=== PATIENT | female | born 1970 | race Caucasian/White ===

== ENCOUNTER 2016-05-30 08:20 | Outpatient (CLI) | payer OTHER | END 2016-05-30 08:21 | disposition home or self-care (01) | DX: Z00.00 Encounter for general adult medical examination without abnormal findings (principal); G40.209 Localization-related (focal) (partial) symptomatic epilepsy and epileptic syndromes with complex partial seizures, not intractable, without status epilepticus; Z79.899 Other long term (current) drug therapy ==

== ENCOUNTER 2016-06-26 12:38 | Outpatient (CLI) | payer OTHER | END 2016-06-26 12:39 | disposition home or self-care (01) | DX: N63 Unspecified lump in breast (principal) ==

== ENCOUNTER 2016-11-02 11:16 | Outpatient (CLI) | payer OTHER ==
[2016-11-02 11:32] LABS: BASOPHILS % (AUTO) 0.6 %; EOSINOPHILS # (AUTO) 0.1 10^3/uL (0.0-0.7); EOSINOPHILS % (AUTO) 2.5 %; HGB - HEMOGLOBIN 13.7 g/dL (12.0-16.0); LYMPHOCYTES # (AUTO) 1.5 10^3/uL (1.5-3.5); LYMPHOCYTES % (AUTO) 30.9 %; MEAN CORPUSCULAR HGB CONC 33.3 g/dL (32.0-36.0); MONOCYTES # (AUTO) 0.4 10^3/uL (0.0-1.0); MONOCYTES % (AUTO) 9.1 %; NEUTROPHILS # (AUTO) 2.8 10^3/uL (1.5-6.6); NEUTROPHILS % (AUTO) 56.9 %; RED BLOOD COUNT 4.27 10^6/uL (4.20-5.40); RED CELL DISTRIBUTION WIDTH 12.8 % (12.0-15.0); UNCORRECTED WHITE BLOOD COUNT 4.9 x10^3/uL; WHITE BLOOD COUNT 4.9 x10^3/uL (4.8-10.8)
[2016-11-02 11:44] LABS: ALBUMIN/GLOBULIN RATIO 1.3 (1.0-2.2); BILIRUBIN,TOTAL 0.4 mg/dL (0.2-1.0); CALCIUM 9.5 mg/dL (8.5-10.3); CREATININE 0.7 mg/dL (0.4-1.0); TOTAL PROTEIN 7.5 g/dL (6.7-8.2)
== END 2016-11-02 11:17 | disposition home or self-care (01) ==
LOC: LAB 11:16
PROVIDERS: ATTEND Nurse Practitioner Primary Care
DX: K51.90 Ulcerative colitis, unspecified, without complications (principal)
CPT/HCPCS: 36415; 80053; 85025

== ENCOUNTER 2017-01-08 12:45 | Outpatient (CLI) | payer OTHER | END 2017-01-08 12:46 | disposition home or self-care (01) | LOC: LAB.R 12:45 | PROVIDERS: ATTEND Nurse Practitioner Primary Care | DX: N39.0 Urinary tract infection, site not specified (principal) | CPT/HCPCS: 87077; 87086 ==

== ENCOUNTER 2017-02-20 08:00 | Outpatient (CLI) | payer OTHER | END 2017-02-20 08:01 | disposition home or self-care (01) | LOC: LAB.R 08:00 | PROVIDERS: ATTEND Nurse Practitioner Primary Care | DX: N39.0 Urinary tract infection, site not specified (principal) | CPT/HCPCS: 87086 ==

== ENCOUNTER 2017-09-11 12:59 | Outpatient (CLI) | payer BC ==
--- NOTE | 2017-09-12 10:18 | Mammography Report ---
Procedure Date: 09/11/2017 Accession Number: [id number] / [id number] Procedure: THALIA - Screening Mammo Dig Bilat CPT Code: FULL RESULT: EXAM: Screening Mammo Dig Bilat DATE: 09/11/2017 1:16 PM CLINICAL HISTORY: 47-year-old with history of late childbearing for screening TECHNIQUE: Bilateral CC and MLO views were obtained. COMPARISON: 06/26/2016, 11/08/2014, 10/03/2012, 03/20/2011 FINDINGS: The breasts demonstrate heterogeneously dense fibroglandular parenchyma bilaterally. Coarse and punctate, typically benign calcifications are present. No suspicious masses, clustered microcalcifications, or regions of architectural distortion are identified. IMPRESSION: Benign findings RECOMMENDATION: Routine annual screening unless otherwise clinically indicated. BIRADS CATEGORY 2: Benign findings STANDARD QUALIFYING STATEMENTS: 1. This examination was reviewed with the aid of Computer-Aided Detection (CAD). 2. A negative or benign imaging report should not delay biopsy if clinically suspicious findings are present. Consider surgical consultation if warrented. More than 5% of cancers are not identified by imaging. 3. Dense breasts may obscure an underlying neoplasm.
== END 2017-09-11 13:00 | disposition home or self-care (01) ==
LOC: DI 12:59
PROVIDERS: ATTEND Physician Assistant Medical
DX: Z12.31 Encounter for screening mammogram for malignant neoplasm of breast (principal)
CPT/HCPCS: 77067

== ENCOUNTER 2018-04-16 08:00 | Outpatient (CLI) | payer BC ==
[2018-04-16 16:13] LABS: BASOPHILS % (AUTO) 0.3 %; EOSINOPHILS # (AUTO) 0.1 10^3/uL (0.0-0.7); EOSINOPHILS % (AUTO) 2.8 %; HGB - HEMOGLOBIN 12.1 g/dL (12.0-16.0); LYMPHOCYTES # (AUTO) 1.4 10^3/uL (1.5-3.5); LYMPHOCYTES % (AUTO) 39.6 %; MEAN CORPUSCULAR HGB CONC 32.7 g/dL (32.0-36.0); MEAN CORPUSCULAR VOLUME 97.7 fL (81.0-99.0); MEAN PLATELET VOLUME 9.9 fL (7.9-10.8); MONOCYTES # (AUTO) 0.4 10^3/uL (0.0-1.0); MONOCYTES % (AUTO) 9.7 %; NEUTROPHILS # (AUTO) 1.7 10^3/uL (1.5-6.6); NEUTROPHILS % (AUTO) 47.6 %; PLT - PLATELET COUNT 206 10^3/uL (130-450); RED BLOOD COUNT 3.79 10^6/uL (4.20-5.40); RED CELL DISTRIBUTION WIDTH 13.6 % (12.0-15.0); WHITE BLOOD COUNT 3.7 x10^3/uL (4.8-10.8)
[2018-04-16 16:18] LABS: ALBUMIN 3.8 g/dL (3.2-5.5); ALBUMIN/GLOBULIN RATIO 1.2 (1.0-2.2); BILIRUBIN,TOTAL 0.2 mg/dL (0.2-1.0); CALCIUM 8.9 mg/dL (8.5-10.3); CREATININE 0.7 mg/dL (0.4-1.0); TOTAL PROTEIN 7.1 g/dL (6.7-8.2)
== END 2018-04-16 23:59 | disposition home or self-care (01) ==
LOC: LAB.R 08:00
PROVIDERS: ATTEND Nurse Practitioner Primary Care
DX: D50.0 Iron deficiency anemia secondary to blood loss (chronic) (principal); Z79.899 Other long term (current) drug therapy; R73.9 Hyperglycemia, unspecified; G40.209 Localization-related (focal) (partial) symptomatic epilepsy and epileptic syndromes with complex partial seizures, not intractable, without status epilepticus
CPT/HCPCS: 80053; 80184; 80188; 81599; 85025

== ENCOUNTER 2019-04-27 11:10 | Outpatient (CLI) | payer OTHER ==
--- NOTE | 2019-04-28 09:53 | XRAY Report ---
Reason: ANKLE JOINT PAIN,RIGHT Procedure Date: 04/27/2019 Accession Number: [id number] / [id number] Procedure: XR - Ankle 3 View RT CPT Code: Final Report FULL RESULT: EXAM: RIGHT ANKLE RADIOGRAPHY 3 VIEWS EXAM DATE: 04/27/2019. CLINICAL HISTORY: Right ankle joint pain. COMPARISON: None. TECHNIQUE: AP, oblique and lateral views. FINDINGS: Bones: No fracture or other acute abnormality. 7 mm enthesophyte at the insertion of the Achilles tendon on the posterior calcaneus. Joints: Normal. No effusion. No subluxations. The ankle mortise is normally aligned. Soft Tissues: Normal. No soft tissue swelling. IMPRESSION: Normal examination of the right ankle. Mild enthesopathy at the insertion of the Achilles tendon on the calcaneus. RADIA
== END 2019-04-27 11:11 | disposition home or self-care (01) ==
LOC: DI 11:10
PROVIDERS: ATTEND Nurse Practitioner
DX: M25.571 Pain in right ankle and joints of right foot (principal)

== ENCOUNTER 2019-05-22 15:56 | Outpatient (CLI) | payer BC, OTHER ==
--- NOTE | 2019-05-25 08:59 | DEXA Report ---
Reason: LONG HISTORY OF HIGH RISK MEDS Procedure Date: 05/22/2019 Accession Number: [id number] / [id number] Procedure: DEX - Dexa Spine and/or Hip CPT Code: Final Report FULL RESULT: EXAM: Dexa Spine and/or Hip DATE: 05/22/2019 5:19 PM CLINICAL HISTORY: LONG HISTORY OF HIGH RISK MEDS TECHNIQUE: Dual energy x-ray absorptiometry (DXA) was performed on a [employer] System. Regions measured are the AP Spine, femoral neck, and if needed forearm. COMPARISON: None. In accordance with the International Society for Clinical Densitometry (ISCD) guidelines, data from previous exams may be reanalyzed using current recommendations and techniques. This is done to allow a more accurate basis for comparison with the current study. FINDINGS: The data for the lumbar spine is as follows: BMD (g/cm/cm) T-SCORE Z-SCORE REGION L1 1.131 0.0 0.2 L2 1.232 0.3 0.5 L3 1.343 1.2 1.4 L4 1.035 -1.4 -1.2 TOTAL 0.6 0.8 NOTE: All evaluable vertebrae are used for classification The data for the hip is as follows: BMD (g/cm/cm) T-SCORE Z-SCORE REGION Neck 0.877 -1.2 -0.5 TOTAL 0.979 -0.2 0.1 NOTE: The femoral neck or total proximal femur, whichever is lowest, is used for classification. IMPRESSION: THE WHO CLASSIFICATION BASED ON THE INTERNATIONAL REFERENCE STANDARD IS OSTEOPENIA. THE FRACTURE RISK IS INCREASED. RECOMMENDATION: Patients with diagnosis of osteoporosis or osteopenia should have regular bone mineral density assessment. For those eligible for Medicare, routine testing is allowed once every 2 years. Testing frequency can be increased for patients who have rapidly progressing disease or for those who are receiving medical therapy to restore bone mass. COMMENT: World Health Organization (WHO) definitions for osteoporosis and osteopenia: NORMAL BMD: T-score at -1.0 or higher, fracture risk is low OSTEOPENIA BMD: T-score between -1.0 and -2.5, fracture risk is increased. OSTEOPOROSIS BMD: T-score at -2.5 or lower, fracture risk is high. National Osteoporosis Foundation recommends: 1. Obtain adequate dietary calcium (at least 1200 mg per day) and vitamin D (400-800 international units per day). 2. Participate, as appropriate, in regular weightbearing and muscle-strengthening exercise. 3. Avoid tobacco use and reduce alcohol and caffeine intake. 4. For more detailed information see the website at www.NOF.org.
== END 2019-05-22 15:57 | disposition home or self-care (01) ==
LOC: DI 15:56
PROVIDERS: ATTEND Specialist
DX: M85.88 Other specified disorders of bone density and structure, other site (principal); Z79.899 Other long term (current) drug therapy
CPT/HCPCS: 77080

== ENCOUNTER 2021-09-04 09:47 | Outpatient (CLI) | payer BC, OTHER ==
--- NOTE | 2021-09-04 10:38 | DEXA Report ---
PROCEDURE: Dexa Spine and/or Hip INDICATIONS: Osteopenia TECHNIQUE: Dual energy x-ray absorptiometry (DXA) was performed on a [employer] System. Regions measur ed are the AP Spine, femoral neck, and if needed forearm. COMPARISON: 05/22/2019 FINDINGS: Lumbar Spine: Bone Mineral Density 1.15 g/cm/cm,T score -0.2, normal Left Hip: Bone Mineral Density 1.016 g/cm/cm,T score 0.1, normal Left Femoral Neck: Bone Mineral Density 0.852 g/cm/cm, T score -1.3, osteopenia IMPRESSION: Osteopenia on the basis of left femoral neck density. Bone mineral density has increased by a statist ically significant 3.8% in the left hip when compared with 05/22/2019 examination. Patients with diagnosis of osteoporosis or osteopenia should have regular bone mineral density assess ment. For those eligible for Medicare, routine testing is allowed once every 2 years. Testing frequ ency can be increased for patients who have rapidly progressing disease or for those who are receivin g medical therapy to restore bone mass. Reviewed by: Lauri Shah MD on 09/04/2021 10:37 AM PDT Approved by: Lauri Shah MD on 09/04/2021 10:37 AM PDT Station ID: [id number]
== END 2021-09-04 09:48 | disposition home or self-care (01) ==
LOC: DI 09:47
PROVIDERS: ATTEND Specialist
DX: M85.88 Other specified disorders of bone density and structure, other site (principal)

== ENCOUNTER 2021-11-28 12:26 | Outpatient (CLI) | payer OTHER ==
--- NOTE | 2021-11-29 12:50 | Ultrasound Report ---
LIMITED ULTRASOUND OF RIGHT BREAST: 11/28/2021 CLINICAL: Patient returns today to evaluate a focal asymmetry in the right breast. Comparison is made to exams dated: 11/28/2021 mammogram, 11/06/2021 mammogram, 06/26/2016 mammogram, mammogram, and 11/08/2014 mammogram - [facility]. Real-time ultrasound of the right breast 11-12 o'clock region was performed. Rosales scale images of th e real-time examination were reviewed. Dense fibroglandular tissue but no mass is identifed in the area of the mammographic architectural di stortion in the right breast 11-12 o'clock position anterior depth. IMPRESSION: PROBABLY BENIGN No sonographic abnormality is seen corresponding to the mammographic architectural distortion in the right breast 11-12 o'clock position. Follow up right breast mammogram in 6 months is recommended to percy lopez. This exam was interpreted at Station ID: [id number]. Electronically Signed By: Jagjit Arechiga M.D. ar/:11/28/2021 19:57:46 Ultrasound BI-RADS: 3 Probably benign BI-RADS CATEGORY: (3) - 3 Mammogram [id number] 6 month follow-up LATERALITY: (R)
--- NOTE | 2021-11-29 12:50 | Mammography Report ---
UNILATERAL RIGHT DIGITAL DIAGNOSTIC MAMMOGRAM 3D/2D: 11/28/2021 CLINICAL: Patient returns today to evaluate an architectural distortion in the right breast. Comparison is made to exams dated: 11/06/2021 mammogram, 09/11/2017 mammogram, 06/26/2016 mammogram, an d 11/08/2014 mammogram - [facility]. The right breast is heterogeneously dense, which may obscure small masses (category c / 51-75% gland ular tissue). There is irregular architectural distortion in the right breast at 12 o'clock anterior depth. Findin g is seen only on tomography. This is seen in additional views. This is more prominent. This abno rmality may have been present on multiple prior mammograms, but it is likely more prominent due to to mosynthesis images. No other significant masses or calcifications are seen in the breast. IMPRESSION: INCOMPLETE: NEEDS ADDITIONAL IMAGING EVALUATION The irregular architectural distortion in the right breast is indeterminate. An ultrasound is recomm ended. Based on the Tyrer Cuzick model (a risk assessment model) the patients lifetime risk is 13.8% and he r 10 year risk is 3.4%. According to the ACR, ACS, and NCCN guidelines, an annual breast MRI exam kristina ng with mammogram is recommended if the patients lifetime risk is 20% or greater. This exam was interpreted at Station ID: [id number]. NOTE: For mammograms, a report in lay terms will be sent to the patient. Approximately 15% of breast malignancies will not be visualized mammographically. In the management of a palpable breast mass, a negative mammogram must not discourage biopsy of a clinically suspicious lesion. Electronically Signed By: Jagjit rucker/eleonora:11/28/2021 19:56:11 ACR BI-RADS Category 0: Incomplete 3340F PARENCHYMAL PATTERN: (D) - The breast(s) demonstrate(s) heterogeneously dense fibroglandular parangelique dumont. BI-RADS CATEGORY: (0) - 0 Ultrasound [id number] Immediate follow-up LATERALITY: (R)
== END 2021-11-28 12:27 | disposition home or self-care (01) ==
LOC: DI 12:26
PROVIDERS: ATTEND Nurse Practitioner
DX: R92.8 Other abnormal and inconclusive findings on diagnostic imaging of breast (principal)

== ENCOUNTER 2022-09-19 07:48 | Outpatient (CLI) | payer OTHER ==
--- NOTE | 2022-09-19 10:35 | Ultrasound Report ---
LIMITED ULTRASOUND OF LEFT BREAST: 09/19/2022 CLINICAL: Intermittent pain in left breast. Comparison is made to exams dated: 09/19/2022 mammogram and 11/06/2021 mammogram - [facility]. Color flow ultrasound of the left breast 3 o'clock region was performed. Rosales scale images of the r eal-time examination were reviewed. No findings in the left breast at 3:00. IMPRESSION: PROBABLY BENIGN There is no abnormality seen in the left breast to correspond with the area of clinical concern, wheeler lizzette, clinical correlation and clinical followup are recommended. A follow-up mammogram in 6 months is recommended to demonstrate stability of the mammographic questio nable distortion at 12;00 in the RIGHT breast, without previous sonographic correlate. This exam was interpreted at Station ID: [id number]. Electronically Signed By: Reinaldo Molina M.D. lc/:09/19/2022 08:46:18 Ultrasound BI-RADS: 3 Probably benign BI-RADS CATEGORY: (3) - 3 Mammogram [id number] 6 month follow-up LATERALITY: (B)
--- NOTE | 2022-09-19 10:35 | Mammography Report ---
BILATERAL DIGITAL DIAGNOSTIC MAMMOGRAM 3D/2D: 09/19/2022 CLINICAL: Patient returns for a 6 month follow up of the right breast. Focal left breast pain. Comparison is made to exams dated: 11/28/2021 mammogram, 11/06/2021 mammogram, 09/11/2017 mammogram, 01/2017 mammogram, and 11/08/2014 mammogram - [facility]. Both breasts are heterogeneously dense, which may obscure small masses (category c / 51-75% glandular tissue). There is a stable architectural distortion in the right breast at 12 o'clock anterior depth. Finding is seen only on tomography. This was not seen on the prior ultrasound. This abnormality may have been present on multiple prior mammograms, but it is likely more prominent due to tomosynthesis image s. No other significant masses, calcifications, or other findings are seen in either breast. IMPRESSION: INCOMPLETE: NEEDS ADDITIONAL IMAGING EVALUATION The stable architectural distortion in the right breast is probably benign. There is no abnormality seen in the left breast to correspond with the area of clinical concern, wheeler lizzette, ultrasound is recommended. Based on the Tyrer Cuzick model (a risk assessment model) the patients lifetime risk is 13.7% and he r 10 year risk is 3.6%. According to the ACR, ACS, and NCCN guidelines, an annual breast MRI exam kristina ng with mammogram is recommended if the patients lifetime risk is 20% or greater. This exam was interpreted at Station ID: [id number]. NOTE: For mammograms, a report in lay terms will be sent to the patient. Approximately 15% of breast malignancies will not be visualized mammographically. In the management of a palpable breast mass, a negative mammogram must not discourage biopsy of a clinically suspicious lesion. Electronically Signed By: Reinaldo Molina M.D. lc/:09/19/2022 08:45:04 ACR BI-RADS Category 0: Incomplete 3340F PARENCHYMAL PATTERN: (D) - The breast(s) demonstrate(s) heterogeneously dense fibroglandular parenchy ma. BI-RADS CATEGORY: (0) - 0 Ultrasound [id number] Immediate follow-up LATERALITY: (B)
== END 2022-09-19 07:49 | disposition home or self-care (01) ==
LOC: DI 07:48
PROVIDERS: ATTEND Nurse Practitioner
DX: R92.8 Other abnormal and inconclusive findings on diagnostic imaging of breast (principal); N64.4 Mastodynia

== ENCOUNTER 2023-04-09 12:47 | Outpatient (CLI) | payer OTHER ==
--- NOTE | 2023-04-10 11:53 | Mammography Report ---
UNILATERAL RIGHT DIGITAL DIAGNOSTIC MAMMOGRAM 3D/2D: 04/09/2023 CLINICAL: Patient returns for a 6 month follow up of the right breast. Comparison is made to exams dated: 09/19/2022 mammogram, 11/28/2021 mammogram, 11/06/2021 mammogram, 08/17 mammogram, 06/26/2016 mammogram, and 11/08/2014 mammogram - [facility]. The right breast is heterogeneously dense, which may obscure small masses (category c / 51-75% glandu lar tissue). The previously described architectural distortion in the right breast at 12 o'clock anterior depth is no longer visualized. No significant masses, calcifications, or other findings are seen in the breas t. IMPRESSION: NEGATIVE There is no mammographic evidence of malignancy. A 1 year screening mammogram is recommended. Findings and recommendations were conveyed to the patient during today's evaluation. Based on the Tyrer Cuzick model (a risk assessment model) the patient's lifetime risk is 13.7% and he r 10 year risk is 3.6%. According to the ACR, ACS, and NCCN guidelines, an annual breast MRI exam kristina ng with mammogram is recommended if the patients lifetime risk is 20% or greater. This exam was interpreted at Station ID: [id number]. NOTE: For mammograms, a report in lay terms will be sent to the patient. Approximately 15% of breast malignancies will not be visualized mammographically. In the management of a palpable breast mass, a negative mammogram must not discourage biopsy of a clinically suspicious lesion. Electronically Signed By: Saira Chinchilla M.D., PH.D eb/:04/09/2023 13:42:34 ACR BI-RADS Category 1: Negative 3341F PARENCHYMAL PATTERN: (D) - The breast(s) demonstrate(s) heterogeneously dense fibroglandular parangelique ma. BI-RADS CATEGORY: (1) - 1 Mammogram [id number] 1 year screening LATERALITY: (B)
== END 2023-04-09 12:48 | disposition home or self-care (01) ==
LOC: DI 12:47
PROVIDERS: ATTEND Nurse Practitioner
DX: R92.8 Other abnormal and inconclusive findings on diagnostic imaging of breast (principal); R92.331 Mammographic heterogeneous density, right breast